=== PATIENT | female | born 1945 | race Caucasian/White ===

== ENCOUNTER 2017-11-24 10:38 | Inpatient (IN) | payer OTHER, MEDICARE ==
[~2017-11-24] VITALS: Ht 157.5 cm; Wt 80.0 kg
[2017-11-24 11:53] LABS: BASOPHIL (%) 0.6 % (0-1); EOSINOPHIL (%) 1.5 % (0-5); EOSINOPHIL COUNT 0.1 K/uL (0-0.3); HEMATOCRIT 36.9 % (36.0-46.0); HEMOGLOBIN 12.1 G/DL (11.9-15.5); IMMATURE GRANULOCYTE (%) 0.3 % (0.0-0.7); LYMPHOCYTE (%) 18.5 % (15-42); LYMPHOCYTE COUNT 1.3 K/uL (1.0-2.8); MCH 29.7 PG (29.0-34.0); MCHC 32.8 G/DL (30.0-36.0); MCV 90.7 FL (83-99); MONOCYTE (%) 7.4 % (3-12); MONOCYTE COUNT 0.5 K/uL (0-0.8); NEUTROPHIL (%) 71.7 % (45-76); NEUTROPHIL COUNT 5.2 K/uL (1.8-6.4); PLATELET COUNT 198 K/uL (156-360); RBC DIS.WIDTH-CV 12.9 % (11.8-14.6); RBC DIS.WIDTH-SD 42.7 % (39-53); RED BLOOD COUNT 4.07 M/uL (3.80-5.20); WHITE BLOOD COUNT 7.2 K/uL (4.1-10.2)
[2017-11-24 12:03] LABS: CHLORIDE 101 mEq/L (99-109); POTASSIUM 4.6 mEq/L (3.7-5.4); SODIUM 140 mEq/L (136-147)
[2017-11-24 12:05] LABS: GLUCOSE 160 mg/dL (70-99); PTT 32.7 SEC (25-37)
[2017-11-24 12:09] LABS: CREATININE 0.8 mg/dL (0.6-1.3); GFR ESTIMATE (CALCULATED) > 59 mL/min/
[2017-11-24 12:10] LABS: UREA NITROGEN (BUN) 25 mg/dL (9-23)
[2017-11-24 12:12] LABS: APPEARANCE CLEAR ((CLEAR)); BILIRUBIN NEGATIVE; BLOOD NEGATIVE; COLOR YELLOW ((YELLOW)); GLUCOSE (STRIP) NEGATIVE; KETONES 5; LEUKOCYTES MODERATE; NITRITE NEGATIVE; PROTEIN (STRIP) NEGATIVE; SPECIFIC GRAVITY 1.018 (1.000-1.030); UROBILINOGEN 0.2 MG/DL (0.2-1.0)
[2017-11-24 12:13] LABS: TROP-I INTERPRETATION NEGATIVE; TROPONIN-I < 0.01 ng/mL (0.0-0.30)
[2017-11-24 12:15] LABS: BACTERIA NONE SEEN /HPF; CALCIUM OXALATE CRYSTALS 1+ /HPF; EPITHELIAL CELLS RARE /HPF; MUCUS TRACE /LPF; RED BLOOD CELLS 0-5 /HPF (0-5); UCUL ADDED? YES
[2017-11-24] MEDS ORDERED: HYDROCORTISONE30 G2 TP (14:25)
[2017-11-24] MEDS ORDERED: METFORMIN HCL500 MG PO ×2 (14:26)
[2017-11-24] MEDS ORDERED: NP THYROID30 MG PO (14:27)
[2017-11-24] MEDS ORDERED: FOLIC ACID0.4 MG PO (14:28)
[2017-11-24] MEDS ORDERED: VITAMIN C1000 MG PO (14:29)
[2017-11-24] MEDS ORDERED: CO Q-10 WITH L1 EACH PO (14:29)
[2017-11-24] MEDS ORDERED: ALPHA-LIPOIC A300 MG PO (14:30)
[2017-11-24] MEDS ORDERED: CRANBERRY500 M2 PO (14:30)
[2017-11-24] MEDS ORDERED: MAGNESIUM250 MG PO (14:30)
[2017-11-24] MEDS ORDERED: PROBIOTIC1 EAC1 PO (14:31)
[2017-11-24] MEDS ORDERED: TYLENOL REGULA325 MG PO (14:31)
[2017-11-24] MEDS ORDERED: TURMERIC 500 M1 EACH PO (14:33)
[2017-11-24] MEDS ORDERED: [UNRECOGNIZED DRUG - OTHER] BOTH NARES (14:36)
[2017-11-24] MEDS ORDERED: COLLOIDAL SILVER BOTH NARES (14:37)
[2017-11-24] MEDS ORDERED: NOPALEA PO (14:39)
[2017-11-24 15:42] LABS: HDL CHOLESTEROL 55 MG/DL (Desirable>=50); LDL CHOLESTEROL 162 mg/dL (Desirable<100); NON-HDL CHOLESTEROL 207 mg/dL (Desirable<160); TOTAL CHOLESTEROL 262 mg/dL (Desirable<200); TRIGLYCERIDES 224 MG/DL (Normal: <150)
[2017-11-24 15:59] VITALS: BP 131/76
[2017-11-24 19:10] VITALS: BP 126/62
[2017-11-24 23:31] VITALS: BP 135/72
[2017-11-25 03:47] VITALS: BP 127/73
[2017-11-25 06:49] LABS: CHLORIDE 104 MEQ/L (99-109); CREATININE 0.8 MG/DL (0.6-1.3); GFR ESTIMATE (CALCULATED) > 59 mL/min/; GLUCOSE 138 mg/dL (70-99); POTASSIUM 4.4 MEQ/L (3.7-5.4); SODIUM 141 MEQ/L (136-147); UREA NITROGEN (BUN) 19 mg/dL (9-23)
[2017-11-25 07:22] VITALS: BP 147/77
[2017-11-25 07:28] LABS: THYROTROPIN (TSH) 2.7 MIU/L (0.4-5.5)
[2017-11-25 10:44] LABS: HEMOGLOBIN A1c (GLYCOHEMOGLOB) 7.1 % (Below 5.7)
[2017-11-25 12:00] VITALS: BP 140/88
[2017-11-25 16:35] VITALS: BP 150/93
[2017-11-25 19:31] VITALS: BP 138/65
[2017-11-25 22:55] VITALS: BP 133/78
[2017-11-26 03:48] VITALS: BP 137/68
[2017-11-26 06:07] LABS: CREATININE 0.7 MG/DL (0.6-1.3); GFR ESTIMATE (CALCULATED) > 59 mL/min/; UREA NITROGEN (BUN) 15 mg/dL (9-23)
[2017-11-26 07:02] VITALS: BP 173/79
[2017-11-26] MEDS ORDERED: ATORVASTATIN CA40 MG PO (11:35)
[2017-11-26] MEDS ORDERED: ASPIRIN EC325 MG PO (11:35)
[2017-11-26 11:58] VITALS: BP 122/69
== END 2017-11-26 14:26 | disposition home or self-care (01) | DRG 64 ==
LOC: EME 10:38 → ENRESERV 13:40 → 5SOUTH 13:41 → EDOF 13:41 → ENRESERV 14:09 → 5SOUTH 15:20
PROVIDERS: Emergency Medicine; Family Medicine; Hospitalist
DX: I63.9 Cerebral infarction, unspecified (principal); G93.6 Cerebral edema; R29.810 Facial weakness; G47.10 Hypersomnia, unspecified; E11.51 Type 2 diabetes mellitus with diabetic peripheral angiopathy without gangrene; E11.65 Type 2 diabetes mellitus with hyperglycemia; E03.9 Hypothyroidism, unspecified
CPT/HCPCS: 70450; 70496; 70498; 70551; 71045; 80048; 80061; 81003; 82565; 82948; 83036; 84443; 84484; 84520; 85025; 85610; 85730; 87086; 92523 GN; 93005; 93306; 97530 GO; 99281; 99284; J1650; J1815; J2060; J7030